=== PATIENT | male | born 1965 | race Caucasian/White ===

== ENCOUNTER 2017-03-30 06:18 | Day surgery (SDC) | payer OTHER ==
[~2017-03-30] VITALS: Ht 167.6 cm; Wt 70.2 kg
[2017-03-30] VITALS (14 sets, daily range): BP systolic 108–141; BP diastolic 70–90; PULSE 66–88; RESP 14–37; Ht 167.6 cm; Wt 70.2 kg
[2017-03-30] MEDS ORDERED: SOD CHLORIDE 0.9% 1,000 ML IV SCH (07:00)
[2017-03-30] MEDS ORDERED: CEFAZOLIN 2 GM/50 ML (PMX) 50 ML IVPB ONE (07:00)
[2017-03-30] MEDS ORDERED: BUPIVACAINE 0.25% (MPF) 30 ML INJ ONE (07:36)
[2017-03-30] MEDS ORDERED: NEOSTIGMINE 3 MG/3 ML SYRINGE ONE (07:59)
[2017-03-30] MEDS ORDERED: ROCURONIUM 50 MG INJ ONE (07:59)
[2017-03-30] MEDS ORDERED: PROPOFOL 20 ML ONE (07:59)
[2017-03-30] MEDS ORDERED: MEPERIDINE 100 MG INJ ONE (07:59)
[2017-03-30] MEDS ORDERED: SUCCINYLCHOLINE CHLORIDE 100 MG/5 ML SYG IV ONE (07:59)
[2017-03-30] MEDS ORDERED: LIDOCAINE 2% (SDV) 5 ML INJ ONE (07:59)
[2017-03-30] MEDS ORDERED: GLYCOPYRROLATE 0.4 MG INJ ONE ×2 (07:59→08:42)
[2017-03-30] MEDS ORDERED: METOCLOPRAMIDE 10 MG INJ ONE ×2 (08:33→09:41)
[2017-03-30] MEDS ORDERED: ONDANSETRON 4 MG INJ ONE (08:33)
[2017-03-30] MEDS ORDERED: CEFAZOLIN 1 GM INJ ONE (08:33)
--- NOTE | 2017-03-30 09:27 | OPR ---
Date/Time of Note Date/Time of Note DATE: 03/30/17 TIME: 09:22 Operative Report Procedure Date: Mar 30, 2017 Preoperative Diagnosis hemorrhoids Postoperative Diagnosis same Operation Performed 1. proctoplasty for prolapse of mucous membranes cpt code 17923 2. ligation of internal hemorrhoids multiple procedures cpt code 94994 3. rigid sigmoidoscopy 4. therapeutic injection of subcutaneous marcaine cpt code 83872 Surgeon: Apurva SMITH Anesthesia Type: general Estimated Blood Loss: 10 - 50 ml's Specimen: none Grafts/Implants: none Complications: no Indications This is a 51-year-old male with hemorrhoids. He requires surgical repair. Risks alternatives benefits and percent were discussed the patient. Patient's best understanding consents to the operation. Procedure Description Patient taken to the OR and prepped and draped in usual sterile fashion. Surgical timeout was performed. IV antibiotics are given. Rigid sigmoidoscopy was performed. There is no evidence of any masses or lesions that obstructing the area. Prep was fair. THC device is used for the internal hemorrhoidal artery ligation portion of the operation. Under ultrasound guidance internal hemorrhoidal arteries were identified and ligated in a [id number] 2-0 Vicryl suture. This is done in multiple region circumferentially around the anal canal. The sutures were then run distally all the way down to the dentate line in multiple regions. This portion allow for the proctoplasty of the mucous membranes. There is good hemostasis. The anal canal was then rechecked for patency manually. There was good patency. Therapeutic subcutaneous Marcaine was injected throughout the anal mucosa. Dry dressings were applied. Apurva SMITH Mar 30, 2017 09:27
[2017-03-30] MEDS ORDERED: DOCUSATE SODIUM 250 MG CAP PO ONE (09:30)
[2017-03-30] MEDS ORDERED: HYDROCODONE/APAP (5/325) TAB PO ONE (09:30)
[2017-03-30] MEDS ORDERED: FENTAnyl 50 MCG/ML VIAL ONE (09:44)
[2017-03-30] MEDS: FENTAnyl 50 MCG/ML VIAL IV PRN ×2 (09:57→10:08)
[2017-03-30] MEDS ORDERED: hydrALAzine 20 MG INJ IV PRN (10:00)
[2017-03-30] MEDS ORDERED: FENTAnyl 50 MCG/ML VIAL IV PRN ×2 (10:00)
[2017-03-30] MEDS ORDERED: MEPERIDINE 25 MG INJ IV PRN (10:00)
[2017-03-30] MEDS ORDERED: ONDANSETRON 4 MG INJ IV PRN (10:00)
[2017-03-30] MEDS ORDERED: HYDROmorphONE (0.2 MG/ML) 10ML SYG IV PRN ×3 (10:00)
[2017-03-30] MEDS ORDERED: DIPHENHYDRAMINE 50 MG INJ IV PRN (10:00)
[2017-03-30] MEDS ORDERED: OXYCODONE/ACETAMINOPHEN (5/325) TAB PO PRN ×2 (10:00)
[2017-03-30] MEDS ORDERED: METOCLOPRAMIDE 10 MG INJ IV PRN (10:00)
[2017-03-30] MEDS ORDERED: LABETALOL HCL 20MG INJ IV PRN (10:00)
[2017-03-30] MEDS ORDERED: MIDAZOLAM 1 MG/ML 2 ML INJ IV PRN (10:00)
[2017-03-30] MEDS ORDERED: EPHEDrine SULFATE 50 MG/5 ML SYG IV PRN (10:00)
[2017-03-31] MEDS ORDERED: POLY17PO6 PO (22:57)
[2017-03-31] MEDS ORDERED: ACET500C5 PO (22:58)
== END 2017-03-30 12:06 | disposition home or self-care (01) ==
LOC: SDS 06:18
PROVIDERS: ATTEND Surgery
DX: K64.8 Other hemorrhoids (principal); K64.4 Residual hemorrhoidal skin tags
CPT/HCPCS: 46946; J0690; J1170; J2175; J2405; J2710; J2765; J3010; Z7512; Z7610; J7999

== ENCOUNTER 2017-03-31 19:35 | Emergency (ER) | payer OTHER ==
[~2017-03-31] VITALS: Ht 167.6 cm; Wt 70.0 kg
[2017-03-31 19:39] VITALS: Ht 167.6 cm; Wt 70.0 kg
[2017-03-31 22:48] LABS: ADD UMIC YES; UR ASCORBIC ACID NEGATIVE (NEGATIVE); UR BILIRUBIN (Dip) NEGATIVE (NEGATIVE); UR BLOOD (Dip) 1+ mg/dL (NEGATIVE); UR CLARITY CLEAR (CLEAR); UR COLOR YELLOW (YELLOW); UR GLUCOSE (Dip) NEGATIVE (NEGATIVE); UR KETONES (Dip) NEGATIVE (NEGATIVE); UR LEUKOCYTE ESTERASE (Dip) NEGATIVE Leu/ul (NEGATIVE); UR MUCUS FEW /HPF (NONE SEEN); UR NITRITE (Dip) NEGATIVE (NEGATIVE); UR RBC 2 /HPF (0-5); UR SPECIFIC GRAVITY (Dip) 1.011 (1.003-1.030); UR TOTAL PROTEIN (Dip) NEGATIVE (NEGATIVE); UR UROBILINOGEN (Dip) NEGATIVE (NEGATIVE)
[2017-03-31] MEDS ORDERED: POLY17PO6 PO (22:57)
[2017-03-31] MEDS ORDERED: ACET500C5 PO (22:58)
--- NOTE | 2017-03-31 23:00 | ERD ---
ER Documentation Chief Complaint Date/Time DATE: 03/31/17 TIME: 22:59 Chief Complaint s/p hemorroidectomy yesterday. c/o constipation. ROS All systems reviewed and are negative except as per history of present illness. Medications Home Meds Active Scripts Acetaminophen* (Tylophen*) 500 Mg Capsule, 1 CAP PO Q6H Y for PAIN AND OR ELEVATED TEMP, #30 CAP Prov:CALI PLAZA PA-C 03/31/17 Polyethylene Glycol* (Miralax*) 17 Gm Powd.pack, 17 GM PO DAILY, #20 Prov:CALI PLAZA PA-C 03/31/17 Allergies Allergies: Coded Allergies: No Known Drug Allergies (Verified Allergy, Unknown, 03/31/17) PMhx/Soc History of Surgery: Yes (LEFT FOOT , VARICOSE VEINS, hemmorhoidectomy ) Anesthesia Reaction: No Hx Neurological Disorder: No Hx Respiratory Disorders: No Hx Cardiac Disorders: No Hx Psychiatric Problems: No Hx Miscellaneous Medical Probl: Yes (hemmorhoids) Hx Alcohol Use: Yes (SOCIALLY) Hx Substance Use: No Hx Tobacco Use: No Smoking Status: Never smoker Physical Exam Vitals Vital Signs Date Time Temp Pulse Resp B/P Pulse Ox O2 Delivery O2 Flow Rate FiO2 03/31/17 19:39 99.7 96 18 140/83 97 Physical Exam Const: NAD Head: Atraumatic Eyes: Normal Conjunctiva ENT: Normal External Ears, Nose and Mouth. Neck: Full range of motion..~ No meningismus. Resp: Clear to auscultation bilaterally Cardio: Regular rate and rhythm, no murmurs Abd: Soft, non tender, non distended. Normal bowel sounds Skin: No petechiae or rashes Back: No midline or flank tenderness Ext: No cyanosis, or edema Neur: Awake and alert Psych: Normal Mood and Affect Results 24 hrs Laboratory Tests Test 03/31/17 21:56 Urine Color YELLOW Urine Clarity CLEAR Urine pH 7.0 Urine Specific [place] 1.011 Urine Ketones NEGATIVEmg/dL Urine Nitrite NEGATIVEmg/dL Urine Bilirubin NEGATIVEmg/dL Urine Urobilinogen NEGATIVEmg/dL Urine Leukocyte Esterase NEGATIVELeu/ul Urine Microscopic RBC 2/HPF Urine Microscopic WBC 0/HPF Urine Mucus FEW/HPF Urine Hemoglobin 1+mg/dL Urine Glucose NEGATIVEmg/dL Urine Total Protein NEGATIVEmg/dl Procedures/MDM UA is negative for infection Patient given a prescription for Tylenol and MiraLAX. Instructed to continue taking his Colace as prescribed. Instructed to drink plenty of clear fluids. Instructed to take the [place] only for severe pain as it will make him more constipated. Patient understood. Departure Diagnosis: Primary Impression: Constipation Constipation type: unspecified constipation type Qualified Code: K59.00 - Constipation, unspecified constipation type Condition: Fair Patient Instructions: Constipation (Adult), Urinary Retention, Male Referrals: your PCP DR. Brumfield Additional Instructions: Call your primary care doctor TOMORROW for an appointment during the next 1-2 days.See the doctor sooner or return here if your condition worsens before your appointment time. Take Naprosyn or Tylenol for pain and only take [place] for severe pain at as it will make you more constipated. Take MiraLAX as prescribed and continue taking her Colace. CALI PLAZA PA-C Mar 31, 2017 23:00
== END 2017-03-31 23:10 | disposition home or self-care (01) ==
LOC: FTE 19:35
DX: K59.00 Constipation, unspecified (principal)
CPT/HCPCS: 81001; Z7502; 99283

== ENCOUNTER 2017-04-01 01:31 | Emergency (ER) | payer SELFPAY ==
[~2017-04-01] VITALS: Ht 167.6 cm; Wt 68.0 kg
[~2017-04-01 01:31] MED LIST: ACET500C5 PO; POLY17PO6 PO
[2017-04-01 01:40] VITALS: Ht 167.6 cm; Wt 68.0 kg
--- NOTE | 2017-04-01 01:52 | ERD ---
ER Documentation Chief Complaint Date/Time DATE: 04/01/17 TIME: 01:48 Chief Complaint LT FLANK PAIN, SEEN TODAY FOR CONSTIPATION S/P HEMORROIDECTOMY HPI This 51-year-old male presents to the emergency department today complaining of no bowel movement and being unable to urinate for the past day. Patient did indicate that 1 hour ago he went to urinate and went a very small amount. States that he had surgery for internal hemorrhoids yesterday. States his surgeon is Dr. Brumfield. States he is supposed to follow-up with him in 2 weeks. States he is taking Olds for pain and also Colace. Denies any vomiting diarrhea, abdominal pain. ROS All systems reviewed and are negative except as per history of present illness. Medications Home Meds Active Scripts Acetaminophen* (Tylophen*) 500 Mg Capsule, 1 CAP PO Q6H Y for PAIN AND OR ELEVATED TEMP, #30 CAP Prov:CALI PLAZA PA-C 03/31/17 Polyethylene Glycol* (Miralax*) 17 Gm Powd.pack, 17 GM PO DAILY, #20 Prov:CALI PLAZA PA-C 03/31/17 Allergies Allergies: Coded Allergies: No Known Drug Allergies (Verified Allergy, Unknown, 03/31/17) PMhx/Soc History of Surgery: Yes (LEFT FOOT , VARICOSE VEINS, hemmorhoidectomy ) Anesthesia Reaction: No Hx Neurological Disorder: No Hx Respiratory Disorders: No Hx Cardiac Disorders: No Hx Psychiatric Problems: No Hx Miscellaneous Medical Probl: Yes (hemmorhoids) Hx Alcohol Use: Yes (SOCIALLY) Hx Substance Use: No Hx Tobacco Use: No Physical Exam Vitals Vital Signs Date Time Temp Pulse Resp B/P Pulse Ox O2 Delivery O2 Flow Rate FiO2 04/01/17 01:40 99.7 85 20 139/60 95 Physical Exam Const: NAD Head: Atraumatic Eyes: Normal Conjunctiva ENT: Normal External Ears, Nose and Mouth. Neck: Full range of motion..~ No meningismus. Resp: Clear to auscultation bilaterally Cardio: Regular rate and rhythm, no murmurs Abd: Soft, non tender, non distended. Normal bowel sounds Skin: No petechiae or rashes Back: No midline or flank tenderness Ext: No cyanosis, or edema Neur: Awake and alert Psych: Normal Mood and Affect Procedures/MDM This 51-year-old male who presents the emergency department today complaining of no bowel movement and difficulty urinating for the past day. I had initially intended to place a Ch catheter however patient was able to provide me a reasonable urine sample. I did test the urine for infection. Patient's abdomen is soft and nontender he has had no vomiting and I have low suspicion for obstruction at this time. Do not feel he requires imaging or further workup at this time. UA is negative. atient symptoms at this time is consistent with constipation and mild urinary retention. Patient was given a prescription for Tylenol. He was instructed to take the Olds only as needed as it will likely cause him more constipation. Have explained this to the patient. I explained that he needs to drink plenty of fluids. I also give the patient a prescription for MiraLAX to take in addition to the Colace. At this time the patient is stable for discharge and outpatient management. Patient should follow up with their PCP in the next 1-2 days. They may return to the emergency department sooner for any persistent or worsening of symptoms. Patient understood and agreed with the plan. Discussed the patient with Dr. Wu and she is in agreement with the plan. Departure Diagnosis: Primary Impression: Constipation Constipation type: unspecified constipation type Qualified Code: K59.00 - Constipation, unspecified constipation type Condition: CALI Guzman PA-C Apr 01, 2017 01:52
[2017-04-02] MEDS ORDERED: DOCU-144 PO (19:35)
[2017-04-02] MEDS ORDERED: POLY17PO6 PO (19:35)
== END 2017-04-01 05:00 | disposition home or self-care (01) ==
LOC: FTE 01:31
DX: K59.00 Constipation, unspecified (principal)
CPT/HCPCS: 99282

== ENCOUNTER 2017-04-02 18:14 | Emergency (ER) | payer OTHER ==
[~2017-04-02] VITALS: Ht 167.6 cm; Wt 68.2 kg
[2017-04-02 18:18] VITALS: Ht 167.6 cm; Wt 68.2 kg
[2017-04-02] MEDS ORDERED: SOD CHLORIDE 0.9% 1,000 ML IV STA (18:43)
[2017-04-02] MEDS ORDERED: HYDROmorphONE 1 MG/ML SYG IV STA (18:43)
[2017-04-02] MEDS ORDERED: ONDANSETRON 4 MG INJ IV STA (18:43)
[2017-04-02 19:01] LABS: BASOPHIL # 0.1 10^3/ul (0.0-0.1); BASOPHILS % 0.4 % (0.0-2.0); EOSINOPHILS # 0.4 10^3/ul (0.0-0.5); EOSINOPHILS % 3.2 % (0.0-7.0); HEMATOCRIT 44.3 % (42.0-52.0); LYMPHOCYTES # 3.2 10^3/ul (0.8-2.9); LYMPHOCYTES % 23.2 % (15.0-51.0); MEAN CORPUSCULAR HEMOGLOBIN 31.6 pg (29.0-33.0); MEAN CORPUSCULAR HGB CONC 33.9 g/dl (32.0-37.0); MEAN CORPUSCULAR VOLUME 93.5 fl (82.0-101.0); MEAN PLATELET VOLUME 9.4 fl (7.4-10.4); MONOCYTE # 0.9 10^3/ul (0.3-0.9); MONOCYTES % 6.6 % (0.0-11.0); NEUTROPHILS % 66.3 % (39.0-77.0); PLATELET COUNT 325 10^3/UL (140-415); RED BLOOD COUNT 4.74 10^6/ul (4.70-6.10); RED CELL DISTRIBUTION WIDTH 12.8 % (11.5-14.5); WHITE BLOOD COUNT 13.8 10^3/ul (4.8-10.8)
[2017-04-02 19:24] LABS: INR 0.95; PROTIME 12.7 Sec (12.2-14.2)
[2017-04-02 19:26] LABS: ALBUMIN 4.4 g/dl (3.3-4.9); ALBUMIN/GLOBULIN RATIO 1.15; BILIRUBIN,INDIRECT 0.7 mg/dl (0-1.1); BILIRUBIN,TOTAL 0.7 mg/dl (0.2-1.3); CALCIUM 9.7 mg/dl (8.4-10.2); CREATININE 0.83 mg/dl (0.61-1.24); POTASSIUM 4.2 mmol/L (3.5-5.1); TOTAL PROTEIN 8.2 g/dl (6.1-8.1)
--- NOTE | 2017-04-02 19:27 | RADRPT ---
PROCEDURE: CT Abdomen and Pelvis without contrast. CLINICAL INDICATION: Abdominal pain. TECHNIQUE: CT scan of the abdomen and pelvis without contrast was performed on a multidetector hig h-resolution CT scanner. The patient was scanned without intravenous contrast. Coronal and sagittal reformatted images were obtained from the axial source images. Images were reviewed on a high-resol [employer] PACS workstation. One or more of the following dose reduction techniques were used: Automated exposure control, adjustment of the mA and/or kV according to patient size, use of iterative recon struction technique. The total exam CTDI equals 8.74 mGy and the total exam DLP equals 527.33 mGy-c m. COMPARISON: None. FINDINGS: CT abdomen: Minimal bilateral lower lobe dependent atelectatic changes are present. Otherwise, the lung bases are clear. The heart size is normal, without pericardial thickening or effusion. A 1.1 cm hypodense lesion in the right hepatic lobe is consistent to this is. Otherwise, the liver is normal in size and density without focal mass or intrahepatic biliary dilatation. The spleen is normal in size and homogeneous in density. The stomach is grossly unremarkable. The pancreas as vi sualized is normal. The gallbladder and biliary tree are unremarkable and there is no evidence for biliary dilatation. The adrenal glands are symmetric and normal. The kidneys are symmetrically unr emarkable as well. No renal calculus or obstructive uropathy or mass lesion is seen. The aorta is of normal caliber. There is no retroperitoneal lymphadenopathy. The monique hepatis reg ion is clear. The small bowel and mesentery, as visualized, are unremarkable. CT pelvis: The small bowel loops situated within the pelvis are unremarkable. The pelvic organs are normal. T he pelvic sidewalls and inguinal regions are clear. The sigmoid colon and rectum are unremarkable. The appendix is normal. No mass, lymphadenopathy, or free fluid is seen. No acute inflammation is s een. A small 3 mm rounded calcification is present at the nondependent anterior aspect of the bladd er wall, likely related to prior inflammation. The surrounding osseous structures are unremarkable. No osteolytic or osteoblastic lesion is detec iman. IMPRESSION: No abdominal or pelvic acute inflammatory process, mass, or lymphadenopathy. RPTAT: JJ .Chucho Reid MD, MD Date Time Electronically viewed and signed by .Chucho Reid MD, on 04/02/2017 19:26 .A/
[2017-04-02] MEDS ORDERED: POLY17PO6 PO (19:35)
[2017-04-02] MEDS ORDERED: DOCU-144 PO (19:35)
[2017-04-02 19:58] LABS: ADD UMIC NO; UR ASCORBIC ACID NEGATIVE (NEGATIVE); UR BILIRUBIN (Dip) NEGATIVE (NEGATIVE); UR BLOOD (Dip) NEGATIVE (NEGATIVE); UR CLARITY CLEAR (CLEAR); UR COLOR YELLOW (YELLOW); UR GLUCOSE (Dip) NEGATIVE (NEGATIVE); UR KETONES (Dip) NEGATIVE (NEGATIVE); UR LEUKOCYTE ESTERASE (Dip) NEGATIVE Leu/ul (NEGATIVE); UR NITRITE (Dip) NEGATIVE (NEGATIVE); UR SPECIFIC GRAVITY (Dip) 1.015 (1.003-1.030); UR TOTAL PROTEIN (Dip) NEGATIVE (NEGATIVE); UR UROBILINOGEN (Dip) NEGATIVE (NEGATIVE)
[2017-04-02 20:18] VITALS: BP 122/74; PULSE 79; RESP 18; TEMP 98.7
--- NOTE | 2017-04-02 22:45 | ERD ---
ER Documentation Chief Complaint Date/Time DATE: 04/02/17 TIME: 22:42 Chief Complaint HEMORROIDECTOMY SUNDAY WITH CONSTIPATION/URINARY RETENTION NOW HPI 51-year-old man presents with abdominal pain and postop rectal pain from hemorrhoidectomy. He also states he is constipated. He denies fevers or chills , no blood per rectum, no chest pain or shortness of breath ROS All systems reviewed and are negative except as per history of present illness. Medications Home Meds Active Scripts Docusate Sodium* (Colace*) 100 Mg Capsule, 100 MG PO BID for CONSTIPATION, #30 CAP Prov:MIRIAN KIMBALL MD 04/02/17 Polyethylene Glycol* (Miralax*) 17 Gm Powd.pack, 17 GM PO DAILY for CONSTIPATION , #7 Prov:MIIRAN KIMBALL MD 04/02/17 Acetaminophen* (Tylophen*) 500 Mg Capsule, 1 CAP PO Q6H Y for PAIN AND OR ELEVATED TEMP, #30 CAP Prov:CALI PLAZA PA-C 03/31/17 Polyethylene Glycol* (Miralax*) 17 Gm Powd.pack, 17 GM PO DAILY, #20 Prov:CALI PLAZA PA-C 03/31/17 Allergies Allergies: Coded Allergies: No Known Drug Allergies (Verified Allergy, Unknown, 03/31/17) PMhx/Soc Recent hemorrhoidectomy History of Surgery: Yes (LEFT FOOT , VARICOSE VEINS, hemmorhoidectomy ) Anesthesia Reaction: No Hx Neurological Disorder: No Hx Respiratory Disorders: No Hx Cardiac Disorders: No Hx Psychiatric Problems: No Hx Miscellaneous Medical Probl: Yes (hemmorhoids) Hx Alcohol Use: Yes (SOCIALLY) Hx Substance Use: No Hx Tobacco Use: No Smoking Status: Never smoker FmHx Family History: No diabetes Physical Exam Vitals Vital Signs Date Time Temp Pulse Resp B/P Pulse Ox O2 Delivery O2 Flow Rate FiO2 04/02/17 20:18 98.7 79 18 122/74 98 Room Air 04/02/17 18:18 98.7 90 18 135/78 97 Physical Exam GENERAL: Well-developed, well-nourished, well-hydrated, in no apparent distress , looks nontoxic in appearance HEENT: Moist mucous membranes, pink conjunctiva, no cervical spine tenderness or step-off deformities, no goiter, no jaundice or icterus, extraocular movements intact without pain. No submandibular induration, and no pharyngeal erythema NEURO: Alert and oriented 3, cranial nerves II through XII intact bilaterally, pupils equal round reactive to light, no focal deficits or facial asymmetry, sensation intact distally Strength 5/5 in upper and lower extremities bilaterally CARDIAC: Regular rate and rhythm, no murmurs rubs or gallops LUNGS: Clear bilaterally no wheezing crackles or stridor ABDOMEN: Soft nontender, no guarding, no rigidity, no rebound, no psoas sign no obturator sign. Normoactive bowel sounds SKIN: Warm and dry to touch, no abrasions, contusions, or hematomas, no lacerations, no ecchymosis, no target lesions, and without ulcers EXTREMITIES: No clubbing cyanosis or edema, calves are bilaterally symmetrical, no Homans sign, no popliteal cord sign. Distal pulses equal and bilateral PSYCH: Normal affect without agitation or irritability Result Diagram: 04/02/17184904/02/171849 Results 24 hrs Laboratory Tests Test 04/02/17 18:50 04/02/17 19:30 White Blood Count 13.810^3/ul Red Blood Count 4.7410^6/ul Hemoglobin 15.0g/dl Hematocrit 44.3% Mean Corpuscular Volume 93.5fl Mean Corpuscular Hemoglobin 31.6pg Mean Corpuscular Hemoglobin Concent 33.9g/dl Red Cell Distribution Width 12.8% Platelet Count 90126^3/UL Mean Platelet Volume 9.4fl Neutrophils % 66.3% Lymphocytes % 23.2% Monocytes % 6.6% Eosinophils % 3.2% Basophils % 0.4% Nucleated Red Blood Cells % 0.0/100WBC Neutrophils # (Manual) 9.110^3/ul Lymphocytes # 3.210^3/ul Monocytes # 0.910^3/ul Eosinophils # 0.410^3/ul Basophils # 0.110^3/ul Nucleated Red Blood Cells # 0.010^3/ul Prothrombin Time 12.7Sec Prothrombin Time Ratio 1.0 INR International Normalized Ratio 0.95 Sodium Level 138mmol/L Potassium Level 4.2mmol/L Chloride Level 98mmol/L Carbon Dioxide Level 27mmol/L Anion Gap 17 Blood Urea Nitrogen 13mg/dl Creatinine 0.83mg/dl Glucose Level 192mg/dl Calcium Level 9.7mg/dl Total Bilirubin 0.7mg/dl Direct Bilirubin 0.00mg/dl Indirect Bilirubin 0.7mg/dl Aspartate Amino Transf (AST/SGOT) 25IU/L Alanine Aminotransferase (ALT/SGPT) 44IU/L Alkaline Phosphatase 116IU/L Total Protein 8.2g/dl Albumin 4.4g/dl Globulin 3.80g/dl Albumin/Globulin Ratio 1.15 Lipase 99U/L Urine Color YELLOW Urine Clarity CLEAR Urine pH 7.0 Urine Specific [place] 1.015 Urine Ketones NEGATIVEmg/dL Urine Nitrite NEGATIVEmg/dL Urine Bilirubin NEGATIVEmg/dL Urine Urobilinogen NEGATIVEmg/dL Urine Leukocyte Esterase NEGATIVELeu/ul Urine Hemoglobin NEGATIVEmg/dL Urine Glucose NEGATIVEmg/dL Urine Total Protein NEGATIVEmg/dl Current Medications Medications (Trade) Dose Ordered Sig/Savage Route PRN Reason Start Time Stop Time Status Last Admin Dose Admin Sodium Chloride (NS) 1,000 ml @ 1,000 mls/hr Q1H STAT IV 04/02/17 18:43 04/02/17 19:42 DC 04/02/17 18:53 Hydromorphone HCl (Dilaudid) 1 mg ONCE STAT IV 04/02/17 18:43 04/02/17 18:46 DC 04/02/17 18:52 Ondansetron HCl (Zofran Inj) 4 mg ONCE STAT IV 04/02/17 18:43 04/02/17 18:46 DC 04/02/17 18:53 Procedures/MDM IV line was established patient was placed on field marketer rhythm strip revealed a sinus rhythm at about 80 bpm with upright P and T waves. Patient was afebrile. I administered 1 L normal saline intravenously, hydromorphone 1 mg IV, and Zofran 4 mg IV with good response. CT scan of the abdomen and pelvis was performed there was no acute inflammatory infectious pathology noted. CBC and electrolytes are normal, liver function tests normal, Urine analysis was negative for infection. Straight catheterization of the bladder was performed to help with constipation Differential diagnoses considered, included but not limited to acute coronary syndrome, pulmonary embolism, aortic dissection, abdominal aortic aneurysm, sepsis, stroke, meningitis, encephalitis, pneumonia, appendicitis, cholecystitis , bowel obstruction, pyelonephritis, nephrolithiasis, cystitis, as well as metabolic, hematologic, and electrolyte abnormalities. As well as abscess, cellulitis, fractures, and dislocations. Patient feels much better at this time, and vital signs are normal, symptoms have improved. I did give strict instructions to return to the ED if symptoms continue or worsen, patient will otherwise follow-up with primary care physician. Patient understood instructions and agreed to plan. Disclaimer: Inadvertent spelling and grammatical errors are likely due to EHR/ dictation software use and do not reflect on the overall quality of patient care. Also, please note that the electronic time recorded on this note does not necessarily reflect the actual time of the patient encounter. Departure Diagnosis: Primary Impression: Postoperative pain Additional Impression: Constipation Constipation type: slow transit constipation Qualified Code: K59.01 - Slow transit constipation Condition: Good Patient Instructions: Constipation (Adult), Post Op Wound Check, Pain MIRIAN KIMBALL MD Apr 02, 2017 22:45
== END 2017-04-02 20:00 | disposition home or self-care (01) ==
LOC: E/R 18:14
DX: G89.18 Other acute postprocedural pain (principal); K59.01 Slow transit constipation; R06.02 Shortness of breath; R40.2142 Coma scale, eyes open, spontaneous, at arrival to emergency department; R40.2252 Coma scale, best verbal response, oriented, at arrival to emergency department; R40.2362 Coma scale, best motor response, obeys commands, at arrival to emergency department
CPT/HCPCS: 36415; 51701; 74176; 80053; 81003; 83690; 85025; 85610; 96374; 96375; J1170; J2405; J7030; Z7502; Z7610; A4310

== ENCOUNTER 2018-05-22 17:26 | Emergency (ER) | END 2018-05-22 19:29 | disposition home or self-care (01) ==